=== PATIENT | male | born 1980 | race Caucasian/White ===

== ENCOUNTER 2019-01-10 15:29 | Inpatient (IN) ==
[2019-01-14] MEDS ORDERED: DULCOLAX PR PRN ×2 (17:43→17:45)
[2019-01-14] MEDS ORDERED: MAALOX PLUS LIQUID PO PRN ×2 (17:43→17:45)
[2019-01-14] MEDS ORDERED: NICODERM PATCH TD PRN ×2 (17:43→17:45)
[2019-01-14] MEDS ORDERED: SENOKOT PO PRN ×2 (17:43→17:45)
[2019-01-14] MEDS ORDERED: MOTRIN PO PRN ×2 (17:43→17:45)
[2019-01-14] MEDS ORDERED: IMODIUM PO PRN ×3 (17:43→17:45)
[2019-01-14] MEDS ORDERED: DESYREL PO PRN ×2 (17:43→17:45)
[2019-01-14] MEDS ORDERED: ZOFRAN IV PRN ×2 (17:43→17:45)
[2019-01-14] MEDS ORDERED: D5W 1,000 ML IV PRN ×2 (17:43→17:45)
[2019-01-14] MEDS ORDERED: NICOTINE GUM BUCCAL PRN (17:43)
[2019-01-14] MEDS ORDERED: ZOFRAN IM PRN (17:43)
[2019-01-14] MEDS ORDERED: PHENOBARBITAL IV PRN ×2 (17:43→17:45)
[2019-01-14] MEDS ORDERED: TYLENOL PO PRN ×2 (17:43→17:45)
[2019-01-14] MEDS ORDERED: ZOFRAN ODT PO PRN (17:45)
[2019-01-14] MEDS ORDERED: SEROQUEL PO PRN (17:45)
[2019-01-14] MEDS ORDERED: LIBRIUM PO PRN (17:45)
[2019-01-14] MEDS ORDERED: SINEMET 25/100 PO PRN (17:45)
[2019-01-14] MEDS ORDERED: ROBAXIN PO PRN (17:45)
[2019-01-14] MEDS ORDERED: ATARAX PO PRN (17:45)
[2019-01-14] MEDS ORDERED: BENTYL PO PRN (17:45)
[2019-01-14] MEDS: ZOFRAN ODT PO PRN (18:22)
[2019-01-14] MEDS ORDERED: TUBERSOL ID ONE ×2 (19:00)
[2019-01-14 19:12] LABS: HEMATOCRIT 43.8 % (42.0-52.0); HEMOGLOBIN 15.3 g/dL (14.0-18.0); MCH 30.2 PG (27-31); MCHC 34.9 g/dL (33-37); MCV 86.4 FL (81-99); RBC 5.07 XMIL (4.7-6.1); RDW 12.8 % (11.5-14.5); WBC 4.57 X1000 (4.8-10.8)
[2019-01-14 19:16] LABS: INR 0.86; PROTIME 12.2 Seconds (11.0-16.0)
[2019-01-14 19:27] LABS: URINE SOURCE CLEAN CATCH
[2019-01-14 19:35] LABS: BILIRUBIN URINE NEGATIVE (NEGATIVE); BLOOD URINE NEGATIVE (NEGATIVE); CLARITY CLEAR (CLEAR); COLOR YELLOW; GLUCOSE URINE NEGATIVE (NEGATIVE); KETONE URINE TRACE mg/dL (NEGATIVE); LEUKOCYTES URINE TRACE (NEGATIVE); NITRITE URINE NEGATIVE (NEGATIVE); PROTEIN URINE TRACE mg/dL (NEGATIVE); SP GRAVITY URINE 1.025; UROBILINOGEN URINE NORMAL
[2019-01-14 19:36] LABS: AGAP 11; ALBUMIN 4.4 g/dL (3.5-5.0); ALKALINE PHOSPHATASE 114 U/L (32-122); AMYLASE 30 U/L (20-200); BUN 7 mg/dL (8-22); CALCIUM 9.5 mg/dL (8.8-10.2); CHLORIDE 99 mmol/L (98-107); COSMO 277; CREATININE 0.8 mg/dL (0.7-1.2); ESTIMATED GFR > 60; GLUCOSE 91 mg/dL (70-104); GOT 14 U/L (10-34); GPT 13 U/L (10-44); LIPASE 19 U/L (13-60); SODIUM 140 mmol/L (136-145); TCO2 30 mmol/L (25-35); TOTAL PROTEIN 7.4 g/dL (6.3-8.3)
[2019-01-14 19:50] LABS: UR AMPHETAMINES QUAL PRESUMPTIVE POSITIVE (NONE DETECT)
[2019-01-14 19:51] LABS: UR BARBITUATES QUAL NONE DETECTED (NONE DETECT); UR BENZODIAZEPIN QUAL PRESUMPTIVE POSITIVE (NONE DETECT); UR CANNABINOIDS QUAL PRESUMPTIVE POSITIVE (NONE DETECT); UR COCAINE QUAL NONE DETECTED (NONE DETECT); UR METHADONE QUAL NONE DETECTED (NONE DETECT); UR METHAMPHETAMINE QUAL PRESUMPTIVE POSITIVE (NONE DETECT); UR OPIATES QUAL PRESUMPTIVE POSITIVE (NONE DETECT); UR OXYCODONE QUAL NONE DETECTED (NONE DETECT); UR PCP QUAL NONE DETECTED (NONE DETECT); UR PROPOXYPHENE QUAL NONE DETECTED (NONE DETECT); UR TCA QUAL NONE DETECTED (NONE DETECT); URINE BACTERIA NEGATIVE /HFP; URINE CAST NONE SEEN /LPF; URINE CRYSTAL NONE SEEN /HPF; URINE EPITHELIAL CELLS <10 /HPF (<10); URINE RBC <10 /HPF (<10); URINE WBC <10 /HPF (<10); URINE YEAST NONE SEEN /HPF
[2019-01-14] MEDS ORDERED: TORADOL IV PRN (20:42)
[2019-01-14] MEDS ORDERED: SUBUTEX SL SCH ×2 (21:00)
[2019-01-14] MEDS: LIBRIUM PO SCH (21:31)
[2019-01-14] MEDS: SEROQUEL PO PRN (22:27)
[2019-01-15] MEDS: LIBRIUM PO SCH ×3 (03:05→15:57)
[2019-01-15] MEDS: ATARAX PO PRN ×2 (05:25→14:09)
[2019-01-15] MEDS: PROTONIX PO SCH ×2 (05:26→07:37)
[2019-01-15] MEDS ORDERED: PROTONIX PO SCH (07:00)
[2019-01-15] MEDS ORDERED: VITAMIN B-1 PO SCH (09:00)
[2019-01-15] MEDS ORDERED: THERA M PLUS PO SCH (09:00)
[2019-01-15] MEDS ORDERED: FOLIC ACID PO SCH (09:00)
[2019-01-15] MEDS: SUBUTEX SL SCH ×2 (10:01→21:00)
[2019-01-15] MEDS: VITAMIN B-1 PO SCH (10:02)
[2019-01-15] MEDS: FOLIC ACID PO SCH (10:02)
[2019-01-15] MEDS: THERA M PLUS PO SCH (10:02)
[2019-01-15] MEDS: ZOFRAN ODT PO PRN (14:09)
--- NOTE | 2019-01-15 21:55 | PROGRESS NOTE ---
DATE: 01/15/2019 SUBJECTIVE: The patient notes he still does not feel well. Still having muscle aches. Denies any nausea. Denies vomiting. Denies fevers or chills. Still having some abdominal pain overall. PHYSICAL: Vital Signs: Temperature 97, pulse 96, respiratory rate 18, BP 114/86. General: Patient is awake and alert. Currently, in no respiratory distress. He is sleepy on exam, but easily awakened. HEENT: Normocephalic. Neck: Supple. CARDIOVASCULAR: Regular rate. No murmurs. Chest: Clear, nonlabored. Abdomen: Soft, nondistended, nontender. Extremities: Moves all extremities. Neurologic: No changes. ASSESSMENT: 1. Nausea, vomiting. 2. Abdominal pain. 3. Myalgias. 4. Tremors. 5. Paresthesias. 6. Paroxysmal sweating. 7. Alcohol abuse, withdrawal and stabilization. 8. Opiate abuse, withdrawal and stabilization. PLAN: We will continue patient in the hospital. Continue Librium. Continue to wean down on it. We will actually increase his Subutex from 2 twice a day to 4 twice a day as he has tolerated this and will follow. cc: Gareth Candelaria MD
[2019-01-15] MEDS: SEROQUEL PO PRN (22:12)
[2019-01-16] MEDS: LIBRIUM PO SCH ×3 (00:27→21:11)
[2019-01-16] MEDS: ZOFRAN ODT PO PRN (05:15)
[2019-01-16] MEDS ORDERED: LIBRIUM PO SCH (09:00)
[2019-01-16] MEDS: PROTONIX PO SCH (09:31)
[2019-01-16] MEDS: VITAMIN B-1 PO SCH (09:31)
[2019-01-16] MEDS: SUBUTEX SL SCH ×2 (09:31→21:11)
[2019-01-16] MEDS: THERA M PLUS PO SCH (09:32)
[2019-01-16] MEDS: FOLIC ACID PO SCH (09:32)
[2019-01-16] MEDS: SEROQUEL PO PRN (21:10)
--- NOTE | 2019-01-17 00:08 | PROGRESS NOTE ---
DATE: 01/16/2019 SUBJECTIVE: Patient notes that he is feeling better but still having muscle aches. Still having fatigued. Still having difficulty sleeping at night. Overall does not feel back to normal. PHYSICAL EXAMINATION: Vital Signs: Temperature 97.9 degrees, pulse 73, respiratory 20, BP 120/94. General: Patient is awake, alert. He is currently in no respiratory distress. His is still somewhat ill appearing, although improved from admission. HEENT: Normocephalic. Neck: Supple. Cardiovascular: Regular rate. Chest: Clear. Abdomen: Soft. Extremities: Moves all extremities. Neurologic: No changes. ASSESSMENT: 1. Nausea, vomiting. 2. Abdominal pain. 3. Myalgias. 4. Paresthesias. 5. Paroxysmal sweating. 6. Opiate abuse, withdrawal and stabilization. 7. Alcohol abuse, withdrawal and stabilization. PLAN: We will continue patient in the hospital. Continue to wean Librium as we are increasing Subutex and we will follow. cc: Gareth Candelaria MD
[2019-01-17] MEDS: PROTONIX PO SCH (06:29)
[2019-01-17] MEDS: VITAMIN B-1 PO SCH (10:23)
[2019-01-17] MEDS: LIBRIUM PO SCH ×2 (10:23→20:04)
[2019-01-17] MEDS: SUBUTEX SL SCH ×2 (10:23→20:04)
[2019-01-17] MEDS: THERA M PLUS PO SCH (10:23)
[2019-01-17] MEDS: FOLIC ACID PO SCH (10:23)
[2019-01-17] MEDS ORDERED: SUBUTEX SL ONE (14:00)
--- NOTE | 2019-01-17 21:58 | PROGRESS NOTE ---
DATE: 01/17/2019 SUBJECTIVE: The patient overall notes that he is feeling a little bit better, still having muscle aches. Denies any fevers or chills. Denies any myalgias. Denies tremors. OBJECTIVE: Temperature 97.9 degrees, pulse 98, respiratory rate 20, BP 129/94. General: The patient is awake, alert, currently in no respiratory distress. HEENT: Normocephalic. Neck supple. Cardiovascular: Regular rate. Chest clear, nonlabored. Abdomen soft. Extremities: Moves all extremities. Neurologic: No focal changes. ASSESSMENT: 1. Nausea and vomiting. 2. Abdominal pain. 3. Tremors. 4. Myalgias. 5. Paresthesias. 6. Paroxysmal sweating. 7. Alcohol abuse withdrawal and stabilization. 8. Opiate abuse withdrawal and stabilization. PLAN: We will continue the patient on Subutex. Due to his recent fentanyl use, we will increase to 8 twice a day. We will decrease his Librium to 25 twice a day and we will follow. Hopefully home over the next 1 or 2 days. cc: Gareth Candelaria MD
[2019-01-17] MEDS: SEROQUEL PO PRN (22:19)
[2019-01-18] MEDS: PROTONIX PO SCH (06:30)
[2019-01-18] MEDS: LIBRIUM PO SCH (09:15)
[2019-01-18] MEDS: FOLIC ACID PO SCH (09:15)
[2019-01-18] MEDS: VITAMIN B-1 PO SCH (09:15)
[2019-01-18] MEDS: SUBUTEX SL SCH ×2 (09:15→20:56)
[2019-01-18] MEDS: THERA M PLUS PO SCH (09:15)
[2019-01-18] MEDS: ZOFRAN ODT PO PRN (11:03)
[2019-01-18] MEDS: ATARAX PO PRN (13:19)
--- NOTE | 2019-01-18 14:46 | PROGRESS NOTE ---
DATE: 01/17/2019 SUBJECTIVE: Patient notes he still feels bad. Still having muscle aches, frequent tremors, myalgias. Denies any fevers or chills. States that his alcohol withdrawal symptoms seem to be improving, but still having some opiate issues. PHYSICAL EXAMINATION: Vital Signs: Reviewed. Temperature 98 degrees, pulse 49 to 90, respiratory 16, BP 122/75. General: Patient is awake, alert. He actually this morning for the first time appears to feel better. He appears to be having less muscle aches overall and certainly less withdrawal issues. HEENT: Normocephalic. Neck: Supple. CARDIOVASCULAR: Regular rate. No murmurs. Chest: Clear, nonlabored, no wheezing. Abdomen: Soft, nondistended. Extremities: Moves all extremities. ASSESSMENT: 1. Nausea, vomiting. 2. Abdominal pain. 3. Myalgias. 4. Paresthesias. 5. Paroxysmal sweating. 6. Opiate abuse withdrawal and stabilization. PLAN: Patient is improving. His alcohol withdrawal issues appear to be resolved. We will decrease him again today on his Librium and change to once a day today and then p.r.n. We will increase Subutex to 4 mg this afternoon. Otherwise, 8 twice a day. Continue counseling. cc: Gareth Candelaria MD
[2019-01-18] MEDS ORDERED: SUBUTEX SL ONE (16:00)
[2019-01-18] MEDS: SEROQUEL PO PRN (22:37)
[2019-01-19] MEDS: PROTONIX PO SCH ×2 (05:51→06:43)
--- NOTE | 2019-01-19 07:55 | PROGRESS NOTE ---
DATE: 01/19/2019 SUBJECTIVE: Patient notes he feels better than on admission but still does not feel back to normal. PHYSICAL EXAMINATION: Vital Signs: Reviewed and stable. Temperature 98 degrees, pulse 88, respiratory rate 20, BP 107/65. General: Patient is in no current respiratory distress. Neck: Supple. Cardiovascular: Regular rate. Chest: Clear. Abdomen: Soft. Extremities: Moves all extremities. ASSESSMENT: 1. Nausea and vomiting. 2. Abdominal pain. 3. Myalgias. 4. Paresthesias. 5. Paroxysmal sweating. 6. Polysubstance use and abuse. PLAN: We will continue to wean off of Librium hopefully today. We will continue the higher dose of Subutex and follow. cc: Gareth Candelaria MD
[2019-01-19] MEDS: VITAMIN B-1 PO SCH (10:07)
[2019-01-19] MEDS: SUBUTEX SL SCH ×2 (10:07→20:12)
[2019-01-19] MEDS: THERA M PLUS PO SCH (10:07)
[2019-01-19] MEDS: FOLIC ACID PO SCH (10:07)
[2019-01-19] MEDS: ATARAX PO PRN (12:41)
[2019-01-19] MEDS: SEROQUEL PO PRN (22:03)
[2019-01-20 07:57] VITALS: BP 116/79
[2019-01-20] MEDS: SUBUTEX SL SCH (08:51)
[2019-01-20] MEDS: VITAMIN B-1 PO SCH (08:51)
[2019-01-20] MEDS: FOLIC ACID PO SCH (08:51)
[2019-01-20] MEDS: PROTONIX PO SCH (08:51)
[2019-01-20] MEDS: THERA M PLUS PO SCH (08:51)
--- NOTE | 2019-01-22 08:26 | HISTORY AND PHYSICAL ---
CHIEF COMPLAINT: Nausea and vomiting. HISTORY OF PRESENT ILLNESS: The patient is a 38-year-old male who [facility] secondary to nausea, vomiting, abdominal pain, and myalgias. States he has been using and abusing opiates. He has been attempting to stop but he has not been successful. SOCIAL HISTORY: Patient is single. He is currently unemployed. Lives at home in [place]. PAST MEDICAL HISTORY: Significant only for chronic anxiety. He has had a significant weight loss in the past few months but this is drug related. MEDICATIONS: Seroquel 150 mg at bedtime. ALLERGIES: Ultram. REVIEW OF SYSTEMS: CINA score is elevated at 13 secondary to nausea, vomiting, abdominal pain, myalgias, frequent paroxysmal sweating, watery eyes, runny nose, chronic anxiety, fidgety. He is not sleeping well. Has had a decrease in his appetite secondary to drug use and stress. Denies any chest pain or palpitations. Denies any fevers or chills. Denies any dysuria, frequency, urgency, hesitancy, polyuria, or polydipsia. Denies skin rashes, weight loss, weight gain. FAMILY HISTORY: There is an extensive family history of alcoholism. SUBSTANCE ABUSE HISTORY: The patient notes that drugs have created several problems in his life and he wants to get his life clean. Notes that in 2002, he was at [facility]. In 2012, he was in [place]. In 2014, he was in [facility] x2 for 4 months. Each time, he completed the program. However, he did not remain sober upon leaving. Started drinking alcohol at age 14. Currently drinks a fifth a day for the past 4 years. Started amphetamines at age 15. Started opiates at age 14. Currently, he is using a gram of heroin every day, IV. Started smoking at age 14. Currently smokes a pack a day. PHYSICAL EXAMINATION: VITAL SIGNS: Reviewed. GENERAL: Patient is awake, alert. He is in no current respiratory distress, although he is somewhat ill-appearing due to his withdrawal symptoms. HEENT: Normocephalic and atraumatic. AXEL. NECK: Supple. No JVD. CARDIOVASCULAR: Regular rate. No murmurs. CHEST: Clear. No current crackles, no wheezing. ABDOMEN: Soft and nondistended. EXTREMITIES: Moves all extremities. NEUROLOGIC: No focal neurological changes. SKIN: Warm and dry. No rashes. ASSESSMENT: 1. Nausea and vomiting. 2. Abdominal pain. 3. Myalgias. 4. Paresthesias. 5. Paroxysmal sweating. 6. Opiate abuse, withdrawal, and admit for stabilization. 7. Alcohol abuse, withdrawal, and admit for stabilization. PLAN: Discussed with patient, given his polysubstance use and abuse, we will start on Librium and as we taper this down, then we can attempt to place him on Suboxone if that is still needed. Discussed outpatient life counseling. Discussed that he needs to avoid situations in which he has been using and abusing in the past. cc: Gareth Candelaria MD
--- NOTE | 2019-01-22 11:38 | DISCHARGE SUMMARY ---
ADMISSION DATE: 01/14/2019 DISCHARGE DATE: 01/20/2019 DISCHARGE DIAGNOSES: 1. Nausea and vomiting. 2. Abdominal pain. 3. Myalgias. 4. Paresthesias. 5. Paroxysmal sweating. 6. Opiate abuse withdrawal and stabilization on Suboxone. 7. Alcohol abuse withdrawal and stabilization on Librium. 8. Chronic anxiety and depression. 9. Chronic tobacco abuse. Discussed the patient's perils smoking as well as ways to stop. CONSULTATIONS: None. PROCEDURES: None. BRIEF HOSPITAL COURSE: Patient is a 38-year-old male who presented to [facility] secondary to nausea, vomiting, abdominal pain, and myalgias. Given his high-dose alcohol intake, we initially placed him on Librium, and continued to wean down the Librium as tolerated, and then slowly increased on Suboxone. He actually required H/two of Suboxone twice a day with 4 mg of Subutex in the afternoon to get his withdrawal symptoms under control. We had used the Subutex instead of Suboxone given that patient was using heroin that had been laced with fentanyl for the last several months. Thankfully, after getting his symptoms under control, patient started feeling better. We were able to wean down and totally off of Librium prior to discharge. Counseling was performed each day by myself. DISPOSITION: Patient will be discharged home. He will continue on Subutex. He is considering inpatient treatment. Discussed with him that that is by far the best course of action. We will continue Subutex for now until he makes his final decision. Discussed with patient he needs to avoid all persons, places, and situations in which he has been using and abusing in the past. He needs outpatient life counseling as well as drug counseling. He needs to develop hobbies and activities that do not promote or encourage drug or alcohol use. He needs to get off [employer], social [employer], etc. cc: Gareth Candelaria MD
== END 2019-01-20 09:35 | disposition home or self-care (01) | DRG 897 ==
LOC: P.MEDSURG 01-14 15:22
PROVIDERS: ADMIT Family Medicine; ATTEND Family Medicine
CPT/HCPCS: 80053; 80104; 80301; 80305; 80307; 80320; 81001; 82055; 82150; 83690; 85027; 85610; 86580; A9270; G0431; G0434; G0477; G0480; G6040